=== PATIENT | male | born 1935 | race Caucasian/White ===

== ENCOUNTER 2016-04-02 11:55 | Emergency (ER) | payer OTHER, MEDICARE ==
[~2016-04-02] VITALS: Ht 167.6 cm; Wt 81.6 kg
[2016-04-02 12:28] VITALS: BP 152/82
[2016-04-02] MEDS ORDERED: BICALUTAMIDE50 M1 PO (13:25)
[2016-04-02] MEDS ORDERED: SIMVASTATIN40 M1 PO (13:27)
[2016-04-02] MEDS ORDERED: ANUSOL-HC25 M1 RC (13:27)
[2016-04-02] MEDS ORDERED: TAMSULOSIN HCL0.4 M1 PO (13:27)
[2016-04-02] MEDS ORDERED: METFORMIN HCL1000 M1 PO (13:27)
[2016-04-02] MEDS ORDERED: CLOPIDOGREL75 M1 PO (13:28)
[2016-04-02] MEDS ORDERED: LOSARTAN POTASS25 M1 PO (13:28)
[2016-04-02] MEDS ORDERED: MULTI-DAY VITA1 EACH PO (13:31)
[2016-04-02] MEDS ORDERED: ASPIRIN EC81 M1 PO (13:31)
--- NOTE | 2016-04-02 14:25 | CT SCAN REPORT ---
EXAMINATION: CT HEAD WITHOUT CONTRAST CLINICAL INFORMATION: Fall, head strike. COMPARISON: CT scan of the head 12/05/2010. MRI scan of the brain 12/06/2010. TECHNIQUE: Contiguous axial imaging was performed from the skull base to vertex without intravenous administration of contrast. DLP: 600.71 mGy-cm FINDINGS: There is no evidence of acute intracranial hemorrhage or territorial infarction. No abnormal mass effect or midline shift is seen. Arevalo to white matter differentiation is well preserved. No extra-axial fluid collections are identified. 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 There is associated volume loss with gliosis and encephalomalacia. The body of the right lateral ventricle is minimally more prominent compared to the left, consistent with ex vacuo dilatation. There is a small area of soft tissue swelling the high scalp toward the vertex in the midline posteriorly. The mastoid air cells are well-aerated. There is mild mucoperiosteal thickening in the bilateral ethmoid sinuses. IMPRESSION: 1. There are no acute bleeds or new territorial infarcts. 2. 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 3. There is scalp swelling the high vertex posteriorly in the midline; there are no acute osseous findings.
--- NOTE | 2016-04-02 14:36 | ED HEAD/FACIAL INJ COMPLAINT ---
History of Present Illness General Chief Complaint: Fall Stated Complaint: FALL; HEAD PAIN Source: patient, old records Exam Limitations: no limitations Vital Signs & Intake/Output Vital Signs & Intake/Output Vital Signs Date Time Temp Pulse Resp B/P Pulse O2 O2 Flow FiO2 Ox Delivery Rate 04/02 1228 96.6 72 18 152/82 100 Room Air Allergies Coded Allergies: NO KNOWN ALLERGIES (12/06/10) Reconcile Medications Anusol Hc (Anusol-Hc) 25 MG SUPP.RECT 1 SUP RC PRN RECTAL PAIN (Reported) Aspirin (Ecotrin*) 81 MG TABLET.DR 1 TAB PO DAILY HEART/BLOOD (Reported) Bicalutamide 50 MG TABLET 1 TAB PO DAILY PROSTATE (Reported) Clopidogrel Bisulfate (Clopidogrel) 75 MG TABLET 1 TAB PO DAILY BLOOD THINNER (Reported) Losartan Potassium 25 MG TABLET 1 TAB PO DAILY BP (Reported) Metformin HCl 1,000 MG TABLET 1 TAB PO BID DM (Reported) Multivitamin (Multi-Day Vitamins) 1 EACH TABLET 1 TAB PO DAILY SUPPLEMENT ( Reported) Simvastatin (Simvastatin*) 40 MG TABLET 1 TAB PO QPM CHOLESTEROL (Reported) Tamsulosin HCl 0.4 MG CAP.ER.24H 1 CAP PO DAILY PROSTATE (Reported) Triage Note: SLIPPED AND FELL ON ICE THIS AM, ? LOC, PT IS ON ASA AND ANOTHER UNKNOWN BLOOD THINNER. Triage Nurses Notes Reviewed? yes Onset: Just prior to arrival Severity: mild Location: occipital Method of Injury: fall Loss of Consciousness: no loss of consciousness Associated Symptoms: rash HPI: time last prior to admission patient slipped on the ice fell striking the back of his head bilateral forearms. He complains of headache now gone. He denies fever chills nausea vomiting diarrhea abdominal pain chest pain shortness breath dysuria bleeding. Past History Travel History Traveled to [place] past 21 day No Medical History Any Pertinent Medical History? see below for history Neurological: NONE EENT: NONE Cardiovascular: NONE Respiratory: NONE Gastrointestinal: NONE Hepatic: NONE Renal: NONE Musculoskeletal: NONE Psychiatric: NONE Endocrine: NONE Blood Disorders: NONE Cancer(s): prostate cancer [employer]ITIONER/Reproductive: NONE History of MRSA: No History of VRE: No History of CDIFF: No Surgical History Surgical History: non-contributory Psychosocial History Who do you live with Spouse Services at Home None What is your primary language Turkmen Tobacco Use: Never used ETOH Use: denies use Family History Hx Contributory? No Review of Systems Review of Systems Constitutional: Reports: no symptoms. EENTM: Reports: no symptoms. Respiratory: Reports: no symptoms. Cardiovascular: Reports: no symptoms. GI: Reports: no symptoms. Genitourinary: Reports: no symptoms. Musculoskeletal: Reports: no symptoms. Skin: Reports: see HPI, rash. Neurological/Psychological: Reports: see HPI, headache. Hematologic/Endocrine: Reports: no symptoms. Immunologic/Allergic: Reports: no symptoms. All Other Systems: Reviewed and Negative Physical Exam Physical Exam General Appearance: well developed/nourished, alert, awake, anxious, mild distress, obese Head: contusions, swelling, tenderness Eyes: Bilateral: normal appearance, PERRL, EOMI. Ears, Nose, Throat: normal pharynx, normal ENT inspection, hearing grossly normal Neck: normal inspection, supple, full range of motion, no midline tenderness Respiratory: normal breath sounds, chest non-tender, no respiratory distress, quiet respiration, lungs clear Cardiovascular: regular rate/rhythm, normal peripheral pulses, norml femoral pulses equa Gastrointestinal: normal bowel sounds, soft, non-tender, no organomegaly Back: normal inspection, normal range of motion, no vertebral tenderness Extremities: normal inspection, normal capillary refill, normal range of motion, no edema Psychiatric: awake, alert, oriented x 3 Cranial Nerves: normal hearing, normal speech, PERRL Coordination/Gait: normal finger to nose, normal gait Motor/Sensory: no motor/sensory deficits Reflexes: 2+: bicep (R), bicep (L). Skin: intact, normal color, warm/dry Lymphatic: no anterior cervical alyssa Progress Differential Diagnosis: ICH, skull fracture Plan of Care: ct Diagnostic Imaging: Viewed by Me: CT Scan. Discussed w/RAD: CT Scan. Radiology Impression: no acute abnormality Departure Departure Time of Disposition: 1435 Disposition: HOME OR SELF CARE Condition: Stable Clinical Impression Primary Impression: Minor head injury without loss of consciousness Qualifiers: Encounter type: initial encounter Qualified Code: S09.90XA - Unspecified injury of head, initial encounter Secondary Impressions: Abrasion forearm Qualifiers: Encounter type: initial encounter Laterality: unspecified laterality Qualified Code: S50.819A - Abrasion of unspecified forearm, initial encounter Referrals: JANENE STOCK,KARENA Valdez (PCP/Family) Departure Forms: Customer Survey General Discharge Information
== END 2016-04-02 14:57 ==
LOC: ERH 11:55
DX: S09.90XA Unspecified injury of head, initial encounter (principal); S50.811A Abrasion of right forearm, initial encounter; S50.812A Abrasion of left forearm, initial encounter; W00.0XXA Fall on same level due to ice and snow, initial encounter
CPT/HCPCS: 77385